=== PATIENT | female | born 1955 | race Caucasian/White ===

== ENCOUNTER 2023-12-05 21:14 | Inpatient (IN) | payer MEDICARE, SELFPAY ==
--- NOTE | ~2023-12-05 | XR_ITS ---
XR chest 2V DATE: 12/05/2023 22:07 INDICATION: Dyspnea on exertion TECHNIQUE: PA and lateral views COMPARISON: None FINDINGS: Heart size is within normal range. No pulmonary infiltrate or consolidation, pleural effusion or pulmonary vascular congestion or pneumo thorax is detected. Degenerative changes of the cervical and thoracic spine. IMPRESSION: No active cardiopulmonary disease Reviewed, dictated and finalized at location A.
--- NOTE | ~2023-12-05 | XR_ITS ---
EXAMINATION: XR chest 2V DATE: 12/08/2023 13:25 INDICATION: Pacer placement. TECHNIQUE: Frontal and lateral views of the chest were obtained. COMPARISON: Chest single view 12/07/2023, chest 2 views 12/05/2023 FINDINGS: There is mild atelectasis in left lower lung zone. No pleural effusion or pneumothorax. The heart size is normal. There is a left chest wall pacer with leads in the right atrium and right vent ricle. There is mild chronic height loss of multiple thoracic vertebral bodies. IMPRESSION: 1. Mild atelectasis in left lower lung zone. Reviewed, dictated and finalized at location A.
--- NOTE | ~2023-12-05 | XR_ITS ---
EXAMINATION: XR chest 1V portable DATE: 12/07/2023 13:01 INDICATION: Pacer placement. TECHNIQUE: A single frontal view of the chest was obtained. COMPARISON: Chest 2 views 12/05/2023 FINDINGS: There is no pneumonia, pleural effusion, or pneumothorax. The heart size is normal. There i s a left chest wall pacer with leads in the right atrium and right ventricle. IMPRESSION: 1. No acute cardiopulmonary disease. Reviewed, dictated and finalized at location A.
[2023-12-05 21:42] VITALS: BP 160/67; PULSE 40; RESP 16; TEMP 36.3; O2SAT 99
--- NOTE | 2023-12-05 21:46 | ECG_ITS ---
SEE SCANNED COPY FOR CONFIRMED REPORT MTDD
[2023-12-05 21:57] LABS: Basophils Percent Auto 0.5 % (0.2-1.2); Eosinophils Absolute Auto 0.2 K/mm3 (0-0.3); Eosinophils Percent Auto 2.2 % (0-4.4); Immature Granulocyte Absolute 0.06 K/mm3 (0.00-0.031); Immature Granulocyte Percent A 0.7 % (0-0.5); Lymphocytes Absolute Auto 2.59 K/mm3 (0.9-3.2); Lymphocytes Percent Auto 30.2 % (18.3-44.2); Mean Corpuscular HGB Conc 32.6 g/dl (32-36); Mean Corpuscular Hemoglobin 30.8 pg (26-34); Mean Corpuscular Volume 94.5 fl (80-100); Mean Platelet Volume 10.8 fl (7.4-10.4); Monocytes Absolute Auto 0.6 K/mm3 (0.1-0.6); Neutrophils Absolute Auto 5.1 K/mm3 (1.3-6.7); Neutrophils Percent Auto 59.4 % (45.5-73.1); Platelet Count Result 257 k/mm3 (150-375); Red Blood Count 4.87 M/mm3 (4.2-5.4); Red Cell Distribution Width 12.8 % (11.5-14.5); White Blood Count 8.6 K/mm3 (4.5-10.0)
[2023-12-05 22:09] LABS: Alanine Aminotransferase 98 U/L (6-35); Albumin Level 4.4 g/dL (3.5-5.1); Alkaline Phosphatase 88 U/L (38-126); Anion Gap 9 mmol/L (4-12); Aspartate Amino Transferase 96 U/L (14-36); Blood Urea Nitrogen 21 mg/dL (7-17); Calcium 9.6 mg/dL (8.4-10.2); Carbon Dioxide 24 mmol/L (22-30); Chloride 109 mmol/L (98-107); Estimated CRCL calculation 57 ml/min; Estimated Glomerular Filt Rate > 60; Glucose 110 mg/dL (65-110); Lipase 93 U/L (23-300); Potassium 3.3 mmol/L (3.4-5.0); Sodium 142 mmol/L (137-145)
[2023-12-05 22:11] LABS: Prothrombin Time 13.2 Seconds (11.1-14.7)
[2023-12-05 22:12] LABS: Partial Thromboplastin Time 29.4 Seconds (22.3-36.8)
[2023-12-05 22:20] LABS: Troponin I < 0.012 ng/mL (0.000-0.034)
--- NOTE | 2023-12-05 22:57 | ECG_ITS ---
SEE SCANNED COPY FOR CONFIRMED REPORT MTDD
--- NOTE | 2023-12-05 22:59 | ED.DIZZY ---
HPI - Dizziness General Chief Complaint: Dizziness Stated Complaint: dizziness, low HR, jaw numbness Time Seen by Provider: 12/05/23 22:41 History of Present Illness HPI Narrative: This is a 59-year-old female, with history of hypertension on metoprolol, amlodipine and lisinopril, who presents emergency department complaining of lightheadedness and left jaw numbness, for the past day. Patient denies any recent change in her medications or health. Today she noticed when reviewing her previous blood pressures and her heart rate has been in the 50s to 40s for the past 3 days. Her normal is in the 60s to 70s. She has no other complaints at this time. Related Data Allergies Allergy/AdvReac Type Severity Reaction Status Date / Time No Known Allergies Allergy Verified 12/05/23 21:15 Review of Systems Review of Systems: All systems reviewed & are unremarkable except as noted in HPI and below PMFSH Past Medical History Medical History Hypertension Surgical History Surgical History No significant past surgical history Social History Social History Smoking status: Never smoker Alcohol intake: never Substance use: never Exam Narrative: GENERAL: Well-developed, well-nourished, and in no acute distress. HEAD: Normocephalic, atraumatic. EYES: PERRLA and EOMI. CHEST: Clear to auscultation. No respiratory distress. No wheezes rales or rhonchi HEART: Bradycardic with regular rhythm. No murmur heard. Normal peripheral pulses. ABDOMEN: Soft, nontender, nondistended, normal active bowel sounds. EXTREMITIES: Normal range of motion. No edema. SKIN: Warm, dry, no rash. NEURO: Alert and oriented x3. No focal deficit. Moving all 4 limbs spontaneously PSYCH: Normal mood and affect. Course Course Emergency Course: 23:00 - EKG demonstrates sinus bradycardia with a rate of 47. Review of the monitor in the room showed intermittent P-waves without a QRS complex, concerning for heart block. Will repeat EKG. I suspect symptomatic bradycardia. Will place patient pads on the patient and plan for admission and Cardiology evaluation. Cbc within normal limits. Coags demonstrate INR 1.0. Chemistries demonstrate mild hypokalemia with potassium of 3.3 and mild elevation of AST/ALT at 96/98 respectively. Troponin negative. Chest x-ray by my interpretation unremarkable. I discussed these findings recommendations with the patient, who voiced understanding and is comfortable with the plan. 23:12 - Repeat EKG demonstrates a second-degree type 2 block. Pacer pads being placed. I discussed the patient with hospitalist, Dr. Gonsalves who accepts admission pending Cardiology consultation. 00:17 - I discussed patient with account support rep, Dr. Yeh who agrees with pacer pad placement as backup and will consult. No acute intervention at this time. My consultation was delayed due to difficulties within the exchange. Vital Signs Vital signs: Vital Signs Temperature 97.3 F L 12/05/23 21:42 Pulse Rate 40 L 12/05/23 21:42 Respiratory Rate 16 12/05/23 21:42 Blood Pressure 160/67 H 12/05/23 21:42 Pulse Oximetry 99 12/05/23 21:42 Oxygen Delivery Room Air 12/05/23 21:42 Temperature 97.3 F L 12/05/23 21:42 Pulse Rate 43 L 12/05/23 23:14 Respiratory Rate 16 12/05/23 21:42 Blood Pressure 160/67 H 12/05/23 21:42 Pulse Oximetry 99 12/05/23 21:42 Oxygen Delivery Room Air 12/05/23 21:42 MDM - Dizziness MDM Narrative Medical decision making narrative: Plan: Imaging, labs, EKG, troponin, reassess Differential Diagnosis Differential diagnosis: Likely other (ACS, metabolic abnormality, dehydration, pneumothorax, arrhythmia, other) Lab Data 12/05/23 21:52 12/05/23 21:52 Labs: Lab Results 12/05/23 Range/Units 21:52 WBC
[2023-12-05 23:14] VITALS: PULSE 43
--- NOTE | 2023-12-05 23:20 | PC.NURSE ---
pt placed on pads on defib per EDP Dr. Enriquez request. Additional 18g IV started in L AC.
[2023-12-05] MEDS: POTASSIUM CHLORIDE 20 MEQ ER TABLET 40 MEQ PO (23:26)
[2023-12-05] MEDS: ASPIRIN 81 MG CHEWABLE TABLET 324 MG PO (23:31)
--- NOTE | 2023-12-05 23:42 | PM.IMHP ---
H&P: HPI History of Present Illness Date/Time: 12/05/23 23:42 Chief Complaint: lightheadedness Narrative: This is a 67-year-old female with past medical history significant for hypertension. Patient presents to the emergency room due to lightheadedness and a slow heart rate according to home monitor. Has been feeling lightheaded for the last 2 days monitored her blood pressure at home and noticed that her heart rate was in the 40s. Patient had been in to her primary care physician's office a day prior to this and vitals were just fine. States that her heart rate is usually in the 60s. Patient denies chest pain, PND, orthopnea, no leg edema, has dyspnea with mild exertion. Preliminary workup was significant for EKG with second-degree AV block. Patient has been placed in observation for further evaluation management and treatment. Review of Systems Review of Systems: Lightheadedness, heart rate in the 40s, dyspnea with exertion Constitutional: Constitutional: Denies chills, Denies fatigue, Denies fever(s), Denies malaise, Denies night sweats and Denies weakness Eyes: Eyes: Denies change in vision ENT: Denies dysphagia, Reports dizziness and Denies odynophagia Cardiovascular: Cardiovascular: Denies chest pain, Denies leg edema, Reports lightheadedness, Denies radiating jaw, neck or arm pain, Denies palpitations and Reports dyspnea on exertion Respiratory: Respiratory: Denies chest congestion and Denies cough Gastrointestinal: Gastrointestinal: Denies abdominal pain, Denies nausea and Denies vomiting Genitourinary: Genitourinary: Denies dysuria Musculoskeletal: Musculoskeletal: Denies arthralgias Integumentary/Breasts: Skin/Breast: Denies rash Neurologic: Denies focal weakness and Denies Sensory deficit (Neuro) Psychiatric: Psychiatric: Reports no additional psychiatric complaints and Reports as per HPI Endocrine: Endocrine: Denies fatigue, Denies flushing, Denies heat intolerance, Denies polyphagia, Denies polydipsia, Denies polyuria and Denies palpitations Hematologic/Lymphatic: Hematologic/Lymphatic: Reports no additional hematologic/lymphatic complaints and Reports as per HPI Allergic/Immunologic: Allergic/Immunologic: Reports no additional allergic/immunologic complaints and Reports as per HPI [facility] Past Medical History Medical History (Updated 12/06/23 @ 02:56 by Cristian Gonsalves MD) Hypertension Surgical History Surgical History No significant past surgical history Social History Social History Smoking status: Never smoker Alcohol intake: never Substance use: never Meds Home Medications and Allergies Allergies Allergy/AdvReac Type Severity Reaction Status Date / Time No Known Allergies Allergy Verified 12/05/23 21:15 Vital Signs Vital Signs - 24 hr 12/05/23 21:42 12/05/23 23:14 Temperature 97.3 F L Pulse Rate 40 L 43 L Respiratory Rate 16 Blood Pressure 160/67 H Pulse Oximetry 99 Oxygen Delivery Room Air Exam Narrative: patient is in a stretcher pacer pads on Const: General: comfortable, no acute distress, well developed, alert, awake and average body habitus Nutritional Appearance: average body habitus Orientation/consciousness: patient oriented x3 Other: well-appearing HENMT: Head: normal to inspection, normocephalic and atraumatic Ears: hearing grossly normal bilaterally Face/Nose/Sinus: normal facial exam Face and sinus: normal facial exam Eyes: General: appearance normal, both eyes and all related structures Pupils: Equal, round and reactive pupils present EOM: EOMs intact bilaterally Neck: Neck: full ROM, no lymphadenopathy and no JVD Thyroid: thyroid normal Lymphatic: no lymphadenopathy noted Resp: Effort & Inspection: normal respiratory effort and able to speak in complete sentences Auscultation: clear to ausc
--- NOTE | 2023-12-05 23:42 | PC.NURSE ---
care and report given to MIMI Quiroz. all questions answered.
[2023-12-06] VITALS (20 sets, daily range): BP systolic 140–177; BP diastolic 50–66; PULSE 41–93; RESP 16–20; TEMP 36.3–36.9; O2SAT 95–98; BMI 30.4
[2023-12-06 02:10] LABS: Troponin I 0.026 ng/mL (0.000-0.034)
--- NOTE | 2023-12-06 03:11 | PC.NURSE ---
This patient, Lilian Marshall, was admitted to IMU Room 209-. Patient/family oriented to hospital policies and general routines including ID bracelet, bed and alarms, visiting hours, pain management, procedures, bathroom and other care routines, personal items, smoking policy, room service/diet, and visiting hours. Information on how to activate the Rapid Response Team has been discussed. Patient/Family are encouraged to report perceived risks to care and to ask questions if they do not understand what they are told or what they should do.
[2023-12-06 04:59] LABS: Troponin I 0.027 ng/mL (0.000-0.034)
--- NOTE | 2023-12-06 06:29 | ECG_ITS ---
SEE SCANNED COPY FOR CONFIRMED REPORT MTDD
[2023-12-06 09:54] LABS: Alanine Aminotransferase 90 U/L (6-35); Alkaline Phosphatase 65 U/L (38-126); Anion Gap 4 mmol/L (4-12); Aspartate Amino Transferase 54 U/L (14-36); Bilirubin,Total 1.3 mg/dL (0.2-1.3); Blood Urea Nitrogen 16 mg/dL (7-17); Calcium 8.7 mg/dL (8.4-10.2); Carbon Dioxide 25 mmol/L (22-30); Chloride 109 mmol/L (98-107); Estimated CRCL calculation 73 ml/min; Estimated Glomerular Filt Rate > 60; Glucose 101 mg/dL (65-110); Sodium 138 mmol/L (137-145)
--- NOTE | 2023-12-06 10:00 | PM.CNCAR ---
Assessment and Plan Assessment and plan (1) 2nd degree AV block: Code(s): I44.1 - Atrioventricular block, second degree Status: Acute (2) Symptomatic bradycardia: Code(s): R00.1 - Bradycardia, unspecified Status: Acute Plan This is a 67-year-old lady with hypertension who presents to the hospital with symptomatic bradycardia. She has acquired AV node dysfunction with examples of second-degree AV block Mobitz type 2 as well as examples of complete heart block noted on telemetry. Appropriately her metoprolol has been stopped however it is unlikely that this is the cause of this AV node dysfunction. I am going to order an echocardiogram 1st thing in the morning and assuming that looks favorable as far as left ventricular function she will be brought to the mine laborer for implantation of a pacemaker device. The procedure its risks and hazards were discussed in detail with the patient she is understandable and agreeable to proceed. Dante Arce MD [facility] History of Present Illness History of Present Illness Consult date/time: 12/06/23 10:00 Reason For Visit: SECOND DEGREE AV BLOCK, TYPE 2 Narrative: This is a pleasant 67-year-old lady I am seeing at the request of the hospitalist because of Nav arrhythmias. She is unknown to me and has not previously been admitted at [facility]. She is a lady with hypertension for which she takes metoprolol and losartan as well as hydrochlorothiazide. She began to experience symptoms of lightheadedness starting earlier this week she thinks on Thursday. She is in the habit of checking her blood pressure with a home digital sphygmomanometer which also reports her heart rate. Since then her heart rates been running in the 40s and 50s when typically she is used to seeing her heart rate in the 70 range. Because of this the fact that it persisted she came to the emergency room last evening. She was found to have evidence of high-grade AV block there was an EKG on her chart shows two-to-one conduction there was another EKG and some telemetry strips that appear to show third-degree AV block. She has not had a syncopal event she has had lightheadedness as I mentioned since Thursday. Other than hypertension she has no other significant medical history she has no known cardiac problems in the past. Her electrocardiogram shows a leftward axis and a widened QRS with a right bundle morphology. Her chest x-ray looks unremarkable and she is comfortable he at bed rest in the IMU at this time. Overnight she has been on telemetry there have not been any significant pauses identified. Her metoprolol succinate dosage of 50 mg per day of course is on hold. The patient was astute enough to stop taking her beta-ryanne on her own accord after dosage. Review of Systems Constitutional: Constitutional: Reports no additional constitutional complaints Eyes: Eyes: Reports no additional eye complaints ENT: Reports system reviewed and no additional complaints, except as documented Cardiovascular: Cardiovascular: Reports as per HPI Respiratory: Respiratory: Reports no additional respiratory complaints Gastrointestinal: Gastrointestinal: Reports no additional gastrointestinal complaints Musculoskeletal: Musculoskeletal: Reports no additional musculoskeletal complaints Integumentary/Breasts: Skin/Breast: Reports system reviewed and no additional complaints, except as docu Neurologic: Comments: Alert and oriented x3 Endocrine: Endocrine: Reports no additional endocrine complaints Hematologic/Lymphatic: Hematologic/Lymphatic: Reports no additional hematologic/lymphatic complaints Allergic/Immunologic: Allergic/Immunologic: Reports no additional allergic/immunologic complaints [facility] Past Medical History Medical History (Updated 12/06/23 @ 02:56 by Cristian Gonsalves MD) Hypertension Surgical History Surgical History (Reviewed 12/05/23 @ 23:07 by Toi Enriquez
--- NOTE | 2023-12-06 15:57 | PM.IMPN ---
Progress Note: A&P Assessment and Plan (1) Symptomatic bradycardia: Code(s): R00.1 - Bradycardia, unspecified Status: Acute Assessment and Plan: Patieint presents with lightheadedness and found to have Mobitz II 2nd degree AV block. TSH normal. Troponin negative x3. Metoprolol stopped. Monitor on tele. Cardiology consulted. Check Echo tomorrow. Plan for PM placement tomorrow. (2) 2nd degree AV block: Code(s): I44.1 - Atrioventricular block, second degree Status: Acute Assessment and Plan: As above (3) Hypertension: Code(s): I10 - Essential (primary) hypertension Status: Acute Assessment and Plan: BP elevated but felt to be physiologic response to the bradycardia. Allow for permissive HTN for now. (4) Hypokalemia: Code(s): E87.6 - Hypokalemia Status: Acute Assessment and Plan: Potasium low at 3.3 on admisison. This was replaced and now normal. Mag 2.0 Follow. (5) Elevated LFTs: Code(s): R79.89 - Other specified abnormal findings of blood chemistry Status: Acute Assessment and Plan: AST/ALT were elevated felt related to passive congestion Levels better today. Plan DVT prophylaxis -SCD Code status - full Subjective Date/time seen: 12/06/23 15:57 Interval history: 67yo female with HTN on metoprolol here for lightheadedness and found to have bradycardia. She feels well today. No CP or SOB. No n/v. Exam Narrative: AF 98.5 177/51 50 20 97% ra Gen - NARD Chest - CTA bilaterally, nml RR CV - bradycardic. Tele showing HR 40-50 and Mobitz II Abd - Soft, NT/ND, Positive BS Ext - No pedal edema Psych - Nml mood and affect Skin - Warm and dry Objective Data Vital Signs Vital Signs: Vital Signs - 24 hr 12/05/23 21:42 12/05/23 23:14 12/06/23 01:24 Temperature 97.3 F L Pulse Rate 40 L 43 L 81 Respiratory Rate 16 18 Blood Pressure 160/67 H 149/64 H Pulse Oximetry 99 97 Oxygen Delivery Room Air 12/06/23 02:25 12/06/23 02:56 12/06/23 03:21 Temperature 97.4 F L Pulse Rate 42 L 80 93 Respiratory Rate 17 16 16 Blood Pressure 153/54 H 144/57 H 174/54 H Pulse Oximetry 96 97 98 Oxygen Delivery 12/06/23 03:30 12/06/23 08:06 12/06/23 03:07 Temperature 97.6 F Pulse Rate 43 L 45 L Respiratory Rate 16 Blood Pressure 155/50 H Pulse Oximetry 97 Oxygen Delivery Room Air 12/06/23 04:00 12/06/23 06:00 12/06/23 11:29 Temperature 98.4 F Pulse Rate 41 L 45 L 44 L Respiratory Rate 16 Blood Pressure 153/51 H Pulse Oximetry 95 Oxygen Delivery Intake/Output Intake/Output: Intake & Output 12/03/23 12/04/23 12/05/23 12/06/23 23:59 23:59 23:59 23:59 Intake Total 680 Output Total 250 Balance 430 Meds/Results Medications: Active Medications Generic Name Dose Route Start Last Admin Trade Name Freq PRN Reason Stop Dose Admin Perflutren Lipid Microsphere 0 ml 12/06/23 02:58 Perflutren Lipid Microspheres 1.5 Ml Vial Diluted To 10 Ml Total Volume IV PUSH 12/09/23 02:58 ONCE PRN adequate visualization Protocol Radiology Results: ITS Impressions Chest X-Ray 12/06/23 07:38 IMPRESSION: No active cardiopulmonary disease Labs Labs: Laboratory Results - last 24 hr 12/05/23 12/06/23 12/06/23 21:52 01:44 04:25 WBC 8.6 RBC 4.87 Hgb 15.0 Hct 46.0 MCV 94.5 MCH 30.8 MCHC 32.6 RDW 12.8 Plt Count 257 MPV 10.8 H Immature Gran % (Auto) 0.7 H Neut % (Auto) 59.4 Lymph % (Auto) 30.2 Ada % (Auto) 7.0 Eos % (Auto) 2.2 Baso % (Auto) 0.5 Lymph # (Auto) 2.59 Ada # (Auto) 0.6 Eos # (Auto) 0.2 Baso # (Auto) 0.0 Abs Immat Gran (auto) 0.06 H Absolute Neuts (auto) 5.1 Absolute Nucleated RBC 0.000 Nucleated RBC % 0.0 PT 13.2 INR 1.0 APTT 29.4 Sodium 142 Potassium 3.3 L Chloride 109 H Carb
[2023-12-07] VITALS (23 sets, daily range): BP systolic 134–164; BP diastolic 52–87; PULSE 41–996; RESP 14–18; TEMP 36.3–37.1; O2SAT 92–100
--- NOTE | 2023-12-07 | ECHO_ITS ---
Patient Info Name: Lilian Marshall Age: 67 years : 1955 Gender: Female Ht: 66 in Wt: 185 lbs BSA: 2.00 m2 HR: 46 bpm BP: 164 / 52 mmHg Heart Rhythm: Bradycardia Technical Quality: Good Exam Date: 12/07/2023 9:30 AM Exam Location: Echo Lab Patient Status: Inpatient Admit Date: 12/06/2023 Staff Ordering Physician: Cristian Gonsalves MD Process Cheese Cooker: Meka Brennan RDCS Attending Provider: Beny Grace MD Referring Physician: Major COBIAN; Exam Type: CA echo doppler color flow Study Info Indications R00.1 - Bradycardia, unspecified Complete two-dimensional, color flow and Doppler transthoracic echocardiogram is performed. Summary 1. Complete two-dimensional, color flow and Doppler transthoracic echocardiogram is performed. 2. Normal left ventricular and right ventricular size and systolic function. 3. Redundant, aneurysmal atrial septum without ASD or shunt. 4. Mildly sclerotic aortic valve with well maintained leaflet separation. Report Signatures
[2023-12-07 05:13] LABS: Alanine Aminotransferase 61 U/L (6-35); Albumin Level 3.4 g/dL (3.5-5.1); Alkaline Phosphatase 52 U/L (38-126); Anion Gap 6 mmol/L (4-12); Aspartate Amino Transferase 35 U/L (14-36); Bilirubin,Total 1.3 mg/dL (0.2-1.3); Blood Urea Nitrogen 14 mg/dL (7-17); Calcium 8.4 mg/dL (8.4-10.2); Carbon Dioxide 22 mmol/L (22-30); Chloride 111 mmol/L (98-107); Estimated CRCL calculation 84 ml/min; Estimated Glomerular Filt Rate > 60; Glucose 101 mg/dL (65-110); Potassium 3.8 mmol/L (3.4-5.0); Sodium 139 mmol/L (137-145)
--- NOTE | 2023-12-07 10:28 | WPDMODSED ---
Moderate Sedation Note-Pt Data Patient Data Diagnosis: symptomatic bradycardia with a both Mobitz type 2 second-degree AV block and complete heart block Present Complaint: lightheadedness Procedure to be performed/Plan: implantation of permanent dual-chamber pacemaker Allergies Allergy/AdvReac Type Severity Reaction Status Date / Time No Known Allergies Allergy Verified 12/06/23 03:14 Home Medications Medication Instructions Recorded Confirmed Type fexofenadine 180 mg tablet 180 mg PO HS 12/06/23 12/06/23 History ([place] Allergy) fluticasone propionate 50 2 spray intranasal DAILY PRN 12/06/23 12/06/23 History mcg/actuation nasal Congestion spray,suspension hydrochlorothiazide 25 mg tablet 25 mg PO HS 12/06/23 12/06/23 History losartan 50 mg tablet 50 mg PO HS 12/06/23 12/06/23 History metoprolol succinate 50 mg 50 mg PO HS 12/06/23 12/06/23 History tablet,extended release 24 hr naproxen sodium 220 mg capsule 220 mg PO HS 12/06/23 12/06/23 History (Aleve) Current Medications: Active Medications Perflutren Lipid Microsphere (Perflutren Lipid Microspheres 1.5 Ml Vial Diluted To 10 Ml Total Volume) 0 ml IV PUSH ONCE PRN; Protocol PRN Reason: adequate visualization Stop: 12/09/23 02:58 Sedation/Anesthesia: No previous sedation/anesthesia problems (including family history). [facility], [facility] Past Medical History Medical History (Updated 12/06/23 @ 16:06 by Beny Grace MD) Hypertension Surgical History Surgical History No significant past surgical history Family History Family History (Updated 12/06/23 @ 06:08 by Marie Bob RN) Mother Pulmonary fibrosis Acute myocardial infarction Father Multiple myeloma Social History Social History Smoking status: Never smoker Alcohol intake: current Drinks per week: 1 Substance use: never Do You Feel Safe in your Home?: Yes Lack of Transportation: No Lack of Food: Never True Current Housing: I Have Housing Concerned About Future Housing: No Difficulty Paying Gas/Electric Bills: No Difficulty Paying for Meds: No Currently Unemployed: No Education: Decline to Answer Difficulty w/ Childcare or Family Care: No Spiritual care concerns: No Mod Sed Physical Exam Physical Exam Pre Procedural Exam: Normal: Neck, Throat, Airway, Lungs, Heart Size, Neuro Exam and Extremities and Variation: Appearance ( overweight white female pleasant cooperative no distress), Heart Rate ( bradycardia, irregular) and Heart Rhythm Hours since solid foods: 12 Hours since liquid intake: 12 Mallampati Classification: class II Internal Medicine - PN: Obj Da Vital Signs Vital Signs: Vital Signs - 24 hr 12/06/23 11:29 12/06/23 15:55 12/06/23 16:00 Temperature 36.9 C 36.9 C Pulse Rate 44 L 50 L 46 L Respiratory Rate 16 20 Blood Pressure 153/51 H 177/51 H Pulse Oximetry 95 97 Oxygen Delivery 12/06/23 12:00 12/06/23 16:00 12/06/23 18:00 Temperature Pulse Rate 47 L Respiratory Rate Blood Pressure Pulse Oximetry Oxygen Delivery Room Air Room Air 12/06/23 14:00 12/06/23 12:00 12/06/23 17:00 Temperature Pulse Rate 45 L 44 L Respiratory Rate Blood Pressure 140/51 L Pulse Oximetry Oxygen Delivery 12/06/23 20:25 12/06/23 20:00 12/06/23 22:00 Temperature 36.6 C Pulse Rate 49 L 46 L 48 L Respiratory Rate 18 Blood Pressure 158/66 H Pulse Oximetry 96 Oxygen Delivery 12/06/23 20:00 12/07/23 00:05 12/07/23 00:00 Temperature 36.6 C Pulse Rate 54 L 58 L Respiratory Rate 18 Blood Pressure 163/72 H Pulse Oximetry 96 Oxygen Delivery Room Air 12/07/23 00:00 12/07/23 02:00 12/07/23 04:41 Temperature 36.6 C Pulse Rate 60 78 Respiratory Rate 18 Blood Pressure 164/52 H Pulse Oximetry 96 Oxygen Delivery Room Air
--- NOTE | 2023-12-07 12:28 | ECG_ITS ---
SEE SCANNED COPY FOR CONFIRMED REPORT MTDD
--- NOTE | 2023-12-07 12:29 | WPDCARDPROC ---
Cardiac Cath Procedure Note Date of procedure:: 12/07/23 Performing physician:: Dante Arce MD Indication:: symptomatic bradycardia with high-grade AV block Brief clinical history:: this is a 67-year-old woman with a previous history of hypertension has been experience symptoms of lightheadedness for several days. She came to the emergency room yesterday and was found to be bradycardic with second-degree AV block Mobitz type 2 and also examples of 3rd block on telemetry. For treatment of this permanent dual-chamber pacemaker implant has been recommended. Procedure Procedure performed:: Implantation of permanent Biotronik dual-chamber pacing system Sedation/Medication given:: fentanyl 50 mg Versed 2 mg Access site:: left subclavian vein Estimated blood loss:: minimal Procedure note:: patient was brought to the cardiac catheterization lab in the postabsorptive state the left anterior chest wall was prepped and draped in the usual fashion. Anesthesia was provided with 1% lidocaine infiltrated locally. an incision was then made about 1 in below the clavicle from the midclavicular line to the deltopectoral groove. Using electrocautery cutaneous he was stasis was provided. Sharp and blunt dissection was used to dissect the subcutaneous tissue and identify the prepectoral fascia. Blunt dissection was used to create a pacemaker pocket inferior to the incision along the fascial plane. A antibiotic soaked 4 x 4 was then placed into the pocket. After this attention was turned to venous access. Using Seldinger technique 2 separate punctures were made of the left subclavian vein and the 2 guidewires were advanced under fluoroscopic visualization to level of right atrium. Using 2 6 [place] [employer] the pacemaker leads detailed below replaced into the venous circulation and also advanced to the level of the right atrium. Attention was then turned to placing the ventricular lead. The stylet was withdrawn and a 3 cc syringe was used to form and a J-tip stylet which was used to steer the lead through the right ventricle up to the pulmonary artery position. Straits was placed into lead was withdrawn and placed into the RV apical position. Two different apical spots were identified 1 had relatively low current of injury the seconds but had a relatively high impedance. For this reason a 3rd spot was selected in the septal position. excellent electrical performance was found in this lead with very good sensing and pacing performance and a 10 volts stimulation showed no evidence of extracardiac stimulation. Attention was then turned to positioning the atrial lead. The stylet was removed and a preformed atrial J stent was placed it was placed into the right atrial appendage. The fixation screw was deployed and upon withdrawal of the stylet the lead tip was fixed into position. A once again the analyzer demonstrates very good pacing and sensing performance and a 10 pole stimulus showed no evidence of extracardiac stimulation. Following this the leads were secured to the base of the pocket using the suture sleeves and 2-0 silk ties. The retained sponge was removed from the pocket the pocket was then irrigated with antibiotic infused saline. The pacemaker generator was connected to the leads using the torque wrench in the entire assembly was then placed into the newly created pocket. This was closed in 2 layers using 3-0 Vicryl in interrupted fashion for the subcutaneous tissue and 4-0 Vicryl in a continuous running subcuticular fashion. The wound was then dressed with an Aquacel dressing the patient's left arm was placed in a sling she was taken to the holding area for post pacemaker implant recovery. The procedure was well tolerated and uncomplicated. Findings:: Patient received a permanent Biotronik dual-chamber pacemaker model Amvia Edge [id number]. Serial number [id number]. The device is programmed the DDD mode lower rate limit 60 uppe
[2023-12-07] MEDS: SODIUM CHLORIDE 0.9% IV 1,000 ML 50 ML IV CONT (15:14)
[2023-12-07] MEDS: ACETAMINOPHEN 325 MG TABLET 650 MG PO ×2 (15:53→22:48)
--- NOTE | 2023-12-07 17:16 | PM.IMPN ---
Progress Note: A&P Assessment and Plan (1) Symptomatic bradycardia: Code(s): R00.1 - Bradycardia, unspecified Status: Acute Assessment and Plan: Patieint presents with lightheadedness and found to have Mobitz II 2nd degree AV block. TSH normal. Troponin negative x3. Metoprolol stopped. Cardiology consulted. Echo showing normal LV/RV size and systolic function PM placed today and she tolerated it well. (2) 2nd degree AV block: Code(s): I44.1 - Atrioventricular block, second degree Status: Acute Assessment and Plan: As above (3) Hypertension: Code(s): I10 - Essential (primary) hypertension Status: Acute Assessment and Plan: BP was elevated but felt to be physiologic response to the bradycardia. We allowed for permissive HTN BP better today. Follow (4) Hypokalemia: Code(s): E87.6 - Hypokalemia Status: Acute Assessment and Plan: Potasium low at 3.3 on admisison. This was replaced and now normal at 3.8. Mag 2.0 Follow. (5) Elevated LFTs: Code(s): R79.89 - Other specified abnormal findings of blood chemistry Status: Acute Assessment and Plan: AST/ALT were elevated felt related to passive congestion Levels better today. Plan DVT prophylaxis -SCD Code status - full Subjective Date/time seen: 12/07/23 17:16 Interval history: 67yo female with HTN on metoprolol here for lightheadedness and found to have bradycardia. She is back from her procedure. She feels well. Slight soreness to the left upper chest. Exam Narrative: AF 98.8 138/62 97 16 95% ra Gen - NARD Chest - clear anteriorly and in the flanks. Left upper chest dressing clean and dry CV - RRR S1/S2. Tele showing paced rhythm Abd - Soft, NT/ND, Positive BS Ext - No pedal edema Psych - Nml mood and affect Skin - Warm and dry Objective Data Vital Signs Vital Signs: Vital Signs - 24 hr 12/06/23 18:00 12/06/23 20:25 12/06/23 20:00 Temperature 97.9 F Pulse Rate 47 L 49 L 46 L Respiratory Rate 18 Blood Pressure 158/66 H Pulse Oximetry 96 Oxygen Delivery Oxygen Flow Rate 12/06/23 22:00 12/06/23 20:00 12/07/23 00:05 Temperature 97.8 F Pulse Rate 48 L 54 L Respiratory Rate 18 Blood Pressure 163/72 H Pulse Oximetry 96 Oxygen Delivery Room Air Oxygen Flow Rate 12/07/23 00:00 12/07/23 00:00 12/07/23 02:00 Temperature Pulse Rate 58 L 60 Respiratory Rate Blood Pressure Pulse Oximetry Oxygen Delivery Room Air Oxygen Flow Rate 12/07/23 04:41 12/07/23 04:00 12/07/23 04:00 Temperature 97.8 F Pulse Rate 78 69 Respiratory Rate 18 Blood Pressure 164/52 H Pulse Oximetry 96 Oxygen Delivery Room Air Oxygen Flow Rate 12/07/23 06:00 12/07/23 07:38 12/07/23 08:00 Temperature 97.9 F Pulse Rate 46 L 41 L Respiratory Rate 18 Blood Pressure 157/59 H Pulse Oximetry 100 Oxygen Delivery Room Air Oxygen Flow Rate 12/07/23 13:01 12/07/23 13:15 12/07/23 13:30 Temperature Pulse Rate 81 78 64 Respiratory Rate 16 14 15 Blood Pressure 160/68 H 163/87 H 164/68 H Pulse Oximetry 98 97 98 Oxygen Delivery Room Air Room Air Room Air Oxygen Flow Rate 12/07/23 13:45 12/07/23 14:00 12/07/23 14:10 Temperature Pulse Rate 77 87 Respiratory Rate 17 18 Blood Pressure 148/72 H 146/82 H Pulse Oximetry 94 92 Oxygen Delivery Nasal Cannula Room Air Room Air Oxygen Flow Rate 1 12/07/23 14:13 Temperature 97.5 F L Pulse Rate 96 Respiratory Rate 18 Blood Pressure 156/67 H Pulse Oximetry 96 Oxygen Delivery Oxygen Flow Rate Intake/Output Intake/Output: Intake & Output 12/04/23 12/05/23 12/06/23 12/07/23 23:59 23:59 23:59 23:59 Intake Total 2220 600 Output Total 900 1000 Balance 1320 -400 Meds/Results Medications: Active Medications Generic Name Dose Route Start Last Admin Trade Name Freq PRN Reas
[2023-12-07] MEDS: ceFAZolin 1 GM/NS 50 ML 1 GM/50 ML BAG IVPB (19:19)
[2023-12-08] VITALS (13 sets, daily range): BP systolic 129–176; BP diastolic 56–86; PULSE 71–88; RESP 16–17; TEMP 36.2–36.5; O2SAT 93–98
[2023-12-08] MEDS: ceFAZolin 1 GM/NS 50 ML 1 GM/50 ML BAG IVPB (02:53)
[2023-12-08] MEDS: METOPROLOL SUCCINATE EXT REL 50 MG TABCR PO (08:37)
[2023-12-08] MEDS: ACETAMINOPHEN 325 MG TABLET 650 MG PO (08:37)
[2023-12-08] MEDS: hydroCHLOROthiazide 25 MG TABLET PO (08:37)
--- NOTE | 2023-12-08 09:50 | PM.DS ---
DS: Admitting Diagnosis Discharge Date Admitting Diagnosis lightheadedness DS: Discharge Diagnosis Discharge Diagnosis (1) Symptomatic bradycardia: Code(s): R00.1 - Bradycardia, unspecified Status: Acute Assessment and Plan: Patieint presents with lightheadedness and found to have Mobitz II 2nd degree AV block. TSH normal. Troponin negative x3. Metoprolol stopped. Cardiology consulted. Echo showing normal LV/RV size and systolic function PM placed yesterday ok for DC today after CXR. (2) 2nd degree AV block: Code(s): I44.1 - Atrioventricular block, second degree Status: Acute Assessment and Plan: As above (3) Hypertension: Code(s): I10 - Essential (primary) hypertension Status: Acute Assessment and Plan: BP was elevated but felt to be physiologic response to the bradycardia. We allowed for permissive HTN BP better today. Follow (4) Hypokalemia: Code(s): E87.6 - Hypokalemia Status: Acute Assessment and Plan: Potassium low at 3.3 on admission. This was replaced and now normal at 3.8. Mag 2.0 labs ok on dc (5) Elevated LFTs: Code(s): R79.89 - Other specified abnormal findings of blood chemistry Status: Acute Assessment and Plan: AST/ALT were elevated felt related to passive congestion Levels better today. DS: Summary Hospital Course Hospital Course: 67-year-old female with past medical history significant for hypertension.? Patient presents to the emergency room due to lightheadedness and a slow heart rate according to home monitor.? Has been feeling lightheaded for the last 2 days monitored her blood pressure at home and noticed that her heart rate was in the 40s.? Patient had been in to her primary care physician's office a day prior to this and vitals were just fine.? States that her heart rate is usually in the 60s.? Patient denies chest pain, PND, orthopnea, no leg edema, has dyspnea with mild exertion.? Preliminary workup was significant for EKG with second-degree AV block.? Patient has been placed in observation for further evaluation management and treatment. Pt is sp pacemaker ok to Dc today. Time Spent with Patient Time attestation: Total time spent providing and/or coordinating discharge services:40 minutes on day of DC Exam Narrative: AF 98.8 138/62 97 16 95% ra Gen - NARD Chest - clear anteriorly and in the flanks. Left upper chest dressing clean and dry CV - RRR S1/S2. Tele showing paced rhythm Abd - Soft, NT/ND, Positive BS Ext - No pedal edema Psych - Nml mood and affect Skin - Warm and dry Discharge Plan Discharge Attending physician on discharge: Meenakshi Liao Consulting providers: Lizbeth Yeh Discharging Clinician: Meenakshi Liao Anticipated Discharge Date/Time: 12/08/23 09:48 Patient Disposition: Home, Self-Care Activity: as tolerated Diet: heart healthy Discharge Instructions: [facility] [address] [place], [place] [id number] DISCHARGE INSTRUCTIONS - POST PACEMAKER Activity 1. No driving until you are seen in the office for your incision check. 2. No lifting, pushing or pulling more than 5 pounds with affected arm for 1 MONTH 3. No lifting affected arm above shoulder height for 1 MONTH 4. Wear immobilizer/sling only if you are unable to remember the above activity restrictions. Recommend that it be worn at night. 5. You may s
--- NOTE | 2023-12-08 12:05 | PM.PNCARD ---
Progress Note: A&P Assessment and Plan (1) 2nd degree AV block: Code(s): I44.1 - Atrioventricular block, second degree Status: Acute Assessment and Plan: Now s/p Biotronik pacemaker on 12/07/23. Pacemaker interrogation this morning showed normal device functioning. Reviewed pacemaker restrictions with patient Follow up CXR ordered for this afternoon If CXR clear, patient OK for discharge today I have arranged follow up in our office (2) Symptomatic bradycardia: Code(s): R00.1 - Bradycardia, unspecified Status: Acute Assessment and Plan: As above (3) Hypertension: Code(s): I10 - Essential (primary) hypertension Status: Acute Assessment and Plan: Will resume home losartan. May need to resume HCTZ at some point as well. Subjective Date/time seen: 12/08/23 12:05 Interval history: Cardiology follow up for Mobitz II, pacemaker Date of service 12/07/2022: Feeling well today. Has some soreness surrounding pacer incision. No chest pain or shortness of breath. Review of Systems Constitutional: Constitutional: Reports no additional constitutional complaints Eyes: Eyes: Reports no additional eye complaints ENT: Reports system reviewed and no additional complaints, except as documented Cardiovascular: Cardiovascular: Reports as per HPI Respiratory: Respiratory: Reports no additional respiratory complaints Gastrointestinal: Gastrointestinal: Reports no additional gastrointestinal complaints Musculoskeletal: Musculoskeletal: Reports no additional musculoskeletal complaints Integumentary/Breasts: Skin/Breast: Reports system reviewed and no additional complaints, except as docu Endocrine: Endocrine: Reports no additional endocrine complaints Hematologic/Lymphatic: Hematologic/Lymphatic: Reports no additional hematologic/lymphatic complaints Allergic/Immunologic: Allergic/Immunologic: Reports no additional allergic/immunologic complaints Exam Const: General: comfortable, no acute distress, alert and awake Orientation/consciousness: patient oriented x3 HENMT: Head: normal to inspection Eyes: General: appearance normal, both eyes and all related structures Pupils: Equal, round and reactive pupils present Neck: Neck: normal visual inspection, supple and no JVD Carotids: normal carotid upstroke Chest: Other: L pectoral incision covered with sterile dressing. Scant blood shadowing noted. No hematoma. + Resp: Effort & Inspection: normal respiratory effort Auscultation: clear to auscultation bilaterally Cardio: Rate: regular rate Rhythm: regular rhythm Heart sounds: S1 normal heart sound present, S2 normal heart sound present and no murmurs GI: Auscultation: normal bowel sounds Skin: General skin exam: normal color Neuro: General: patient oriented x3 Cranial nerves: Yes Equal, round and reactive pupils present Extrem: General: normal to inspection Psych: Appearance: grossly normal Mental Status: mental status grossly normal Objective Data Vital Signs Vital Signs: Vital Signs - 24 hr 12/07/23 13:01 12/07/23 13:15 12/07/23 13:30 Temperature Pulse Rate 81 78 64 Respiratory Rate 16 14 15 Blood Pressure 160/68 H 163/87 H 164/68 H Pulse Oximetry 98 97 98 Oxygen Delivery Room Air Room Air Room Air Oxygen Flow Rate 12/07/23 13:45 12/07/23 14:00 12/07/23 14:10 Temperature Pulse Rate 77 87 Respiratory Rate 17 18 Blood Pressure 148/72 H 146/82 H Pulse Oximetry 94 92 Oxygen Delivery Nasal Cannula Room Air Room Air Oxygen Flow Rate 1 12/07/23 14:13 12/07/23 18:13 12/07/23 20:14 Temperature 36.4 C L 37.1 C 36.8 C Pulse Rate 96 97 91 Respiratory Rate 18 16 16 Blood Pressure 156/67 H 138/62 138/71 Pulse Oximetry 96 95 96 Oxygen Delivery Oxygen Flow Rate 12/07/23 16:00 12/07/23 14:09 12/07/23 16:00 Temperature Pulse Rate 81 86 Respiratory Rate Blood Pressure Pulse Oximetry
== END 2023-12-08 14:37 | disposition home or self-care (01) | DRG 244 ==
LOC: ANHED 23:14 → ANHIMU 12-06 03:01
PROVIDERS: Internal Medicine; Specialist; Admitting Provider Internal Medicine; Emergency Provider Preventive Medicine Aerospace Medicine; Visit Provider Family Medicine
PROC: 0JH606Z Insertion of Pacemaker, Dual Chamber into Chest Subcutaneous Tissue and Fascia, Open Approach (ICD-10-PCS; CPT 33208; principal; 2023-12-07 11:30)
DX: I44.1 Atrioventricular block, second degree (principal); R00.1 Bradycardia, unspecified; I10 Essential (primary) hypertension; E87.6 Hypokalemia; R94.5 Abnormal results of liver function studies
CPT/HCPCS: 33208; 36415; 71045; 71046; 80053; 83690; 83735; 84443; 84484; 85025; 85610; 85730; 93005; 93306; 99285; A9270; C1779; C1785; G0378; J0690; J2250; J3010; J7030; J7040